=== PATIENT | female | born 2000 | race Caucasian/White ===

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

== ENCOUNTER 2020-07-14 13:03 | Emergency (ER) | payer SELFPAY ==
[2020-07-14 13:46] LABS: Absolute Lymphocytes (CBC) 1.8 K/uL (0.7-4.9); Basophils % 0.5 % (0-1.3); Hematocrit 40.5 % (36.0-45.0); Lymphocytes % 12.2 % (15.3-44.8); MPV 8.7 fL (7.6-11.3); RBC Red Blood Cell Count 4.34 M/uL (3.86-4.86)
[2020-07-14 13:52] LABS: Urine Bacteria 20-50 /HPF (<20); Urine Culture Reflex Order REFLEXED; Urine RBC <5 /HPF (NONE SEEN); Urine White Blood Cell Casts 0-5 /LPF (NONE SEEN)
[2020-07-14] MEDS ORDERED: CEFTRIAXONE/SWI 1gm 1 GM/10 ML SYR ONE (13:52)
[2020-07-14] MEDS ORDERED: NA CHLORIDE 0.9% 1,000 ML ONE (13:52)
[2020-07-14 14:01] LABS: Albumin 3.8 g/dL (3.4-5.0); Bilirubin Direct 0.1 mg/dL (0-0.2); Bilirubin Total 0.5 mg/dL (0.2-1.0); Potassium 3.6 mmol/L (3.5-5.1); Protein, Total 7.5 g/dL (6.4-8.2)
[2020-07-14 14:06] LABS: Urine Blood 2+ (NEG); Urine Glucose TRACE (NEG); Urine Protein 2+ (NEG); Urine Specific Gravity 1.025 (1.005-1.030)
--- NOTE | 2020-07-14 14:56 | EDPHYS ---
Physician Documentation [facility] Name: Jareth Guzman Age: 20 yrs Sex: Female : 2000 Arrival Date: 07/14/2020 Time: 13:06 Bed 19 Private MD: ED Physician Channing Zhang HPI: 07/14 13:47 This 20 yrs old Female presents to ER via Ambulatory with complaints of Side jr8 Pain. 13:47 The patient complains of pain in the right flank. The pain does not radiate. Onset: The jr8 symptoms/episode began/occurred acutely, 2 day(s) ago. Modifying factors: The symptoms are alleviated by nothing. the symptoms are aggravated by nothing. Associated signs and symptoms: Pertinent positives: dysuria. Severity of pain: At its worst the pain was moderate in the emergency department the pain is unchanged. The patient has not experienced similar symptoms in the past. The patient has not recently seen a physician. Historical: - Allergies: 13:17 No Known Allergies; ll1 - PMHx: 13:17 Asthma; Ovarian cyst; ll1 - PSHx: 13:17 None; ll1 - Immunization history:: Flu vaccine is not up to date. - Social history:: Smoking status: Patient reports the use of cigarette tobacco products, smokes one-half pack cigarettes per day. ROS: 13:47 Eyes: Negative for injury, pain, redness, and discharge, ENT: Negative for injury, jr8 pain, and discharge, Neck: Negative for injury, pain, and swelling, Cardiovascular: Negative for chest pain, palpitations, and edema, Respiratory: Negative for shortness of breath, cough, wheezing, and pleuritic chest pain, Abdomen/GI: Negative for abdominal pain, nausea, vomiting, diarrhea, and constipation, MS/Extremity: Negative for injury and deformity, Skin: Negative for injury, rash, and discoloration, Neuro: Negative for headache, weakness, numbness, tingling, and seizure. 13:47 Back: Positive for flank pain, on the right. 13:47 : Positive for urinary symptoms, burning with urination, Negative for vaginal bleeding, vaginal discharge, vaginal itching, menstrual abnormality. Exam: 13:47 Eyes: Pupils equal round and reactive to light, extra-ocular motions intact. Lids and jr8 lashes normal. Conjunctiva and sclera are non-icteric and not injected. Cornea within normal limits. Periorbital areas with no swelling, redness, or edema. ENT: Nares patent. No nasal discharge, no septal abnormalities noted. Tympanic membranes are normal and external auditory canals are clear. Oropharynx with no redness, swelling, or masses, exudates, or evidence of obstruction, uvula midline. Mucous membranes moist. Neck: Trachea midline, no thyromegaly or masses palpated, and no cervical lymphadenopathy. Supple, full range of motion without nuchal rigidity, or vertebral point tenderness. No Meningismus. Cardiovascular: Regular rate and rhythm with a normal S1 and S2. No gallops, murmurs, or rubs. Normal PMI, no JVD. No pulse deficits. Respiratory: Lungs have equal breath sounds bilaterally, clear to auscultation and percussion. No rales, rhonchi or wheezes noted. No increased work of breathing, no retractions or nasal flaring. Skin: Warm, dry with normal turgor. Normal color with no rashes, no lesions, and no evidence of cellulitis. MS/ Extremity: Pulses equal, no cyanosis. Neurovascular intact. Full, normal range of motion. Neuro: Awake and alert, GCS 15, oriented to person, place, time, and situation. Cranial nerves II-XII grossly intact. Motor strength 5/5 in all extremities. Sensory grossly intact. 13:47 Abdomen/GI: Inspection: abdomen appears normal, Bowel sounds: active, all quadrants, Palpation: soft, in all quadrants, mild abdominal tenderness, in the posterior aspect of right lateral abdomen and anterior aspect of right lateral abdomen, mass, is not appreciated, rebound tenderness, is not appreciated, voluntary guarding, is not appreciated, involuntary guarding, is not appreciated, no appreciated organomegaly, Indicators: McBurney's point is not tender, Lindsay's sign is negative, Rovsing's sign is negative, Liver: tenderness, is not appreciated. 13:47 Back: pain, that is mild, of the right flank, CVA tenderness, that is mild, is noted on the right. Vital Signs: 13:15 BP 108 / 90; Pulse 97; Resp 17; Temp 98.7; Pulse Ox 96% ; Pain 5/10; ll1 14:19 BP 114 / 72; Pulse 103; Resp 18; Pulse Ox 100% on R/A; em MDM: 13:19 Patient medically screened. [facility] 14:54 Data reviewed: vital signs, nurses notes, lab test result(s), and as a result, I will jr8 discharge patient. Data interpreted: Pulse oximetry: on room air is 100 %. Interpretation: normal. Counseling: I had a detailed discussion with the patient and/or guardian regarding: the historical points, exam findings, and any diagnostic results supporting the discharge/admit diagnosis, lab results, the need for outpatient follow up, a family practitioner, to return to the emergency department if symptoms worsen or persist or if there are any questions or concerns that arise at home. Response to treatment: the patient's symptoms have mildly improved after treatment. 07/14 13:19 Order name: Basic Metabolic Panel; Complete Time: 14:54 [facility] 07/14 13:19 Order name: CBC with Diff; Complete Time: 14:54 [facility] 07/14 13:19 Order name: Hepatic Function; Complete Time: 14:54 [facility] 07/14 13:19 Order name: Lipase; Complete Time: 14:54 [facility] 07/14 13:19 Order name: Urine Microscopic Only; Complete Time: 14:54 [facility] 07/14 13:53 Order name: Urine Culture EDSD 07/14 13:19 Order name: IV Saline Lock; Complete Time: 13:46 [facility] 07/14 13:19 Order name: Labs collected and sent; Complete Time: 13:46 [facility] 07/14 13:19 Order name: Urine Dipstick-Ancillary (obtain specimen); Complete Time: 13:30 [facility] 07/14 14:01 Order name: Urine Dipstick--Ancillary (enter results); Complete Time: 14:54 bd 07/14 14:01 Order name: Urine --Ancillary (enter results); Complete Time: 14:54 bd Administered Medications: 13:44 Drug: NS 0.9% 1000 ml Route: IV; Rate: 1000 ml; Site: right antecubital; em 15:05 Follow up: IV Status: Completed infusion; IV Intake: 1000ml em 13:44 Drug: Rocephin 2 grams Route: IV; Rate: calculated rate; Site: right antecubital; em 15:05 Follow up: Response: No adverse reaction; IV Status: Completed infusion; IV Intake: 20mlem Disposition: 17:06 Co-signature as Attending Physician, Channing Zhang MD I agree with the assessment and kdr plan of care. Disposition: 07/14/20 14:55 Discharged to Home. Impression: Acute tubulo-interstitial nephritis. - Condition is Stable. - Discharge Instructions: Pyelonephritis, Adult. - Prescriptions for Zofran 4 mg Oral Tablet - take 1 tablet by ORAL route every 12 hours As needed; 20 tablet. Bactrim DS 800- 160 mg Oral Tablet - take 1 tablet by ORAL route every 12 hours for 10 days; 20 tablet. Ibuprofen 800 mg Oral Tablet - take 1 tablet by ORAL route every 12 hours As needed take with food; 20 tablet. - Work release form, Medication Reconciliation Form, Thank You Letter, Antibiotic Education, Prescription Opioid Use form. - Follow up: Private Physician; When: 2 - 3 days; Reason: Recheck today's complaints, Continuance of care, Re-evaluation by your physician. - Problem is new. - Symptoms have improved. Signatures: Dispatcher [employer] EDChanning Vera MD MD [facility] Power Enciso, RN RN em Miguel Macias PA PA jr8 Karen Larry RN RN ll1 Corrections: (The following items were deleted from the chart) 15:07 14:55 07/14/2020 14:55 Discharged to Home. Impression: Acute tubulo-interstitial em nephritis. Condition is Stable. Forms are Medication Reconciliation Form, Thank You Letter, Antibiotic Education, Prescription Opioid Use. Follow up: Private Physician; When: 2 - 3 days; Reason: Recheck today's complaints, Continuance of care, Re-evaluation by your physician. Problem is new. Symptoms have improved. jr8
--- NOTE | 2020-07-14 14:56 | ER ---
Nurse's Notes [facility] Name: Jareth Guzman Age: 20 yrs Sex: Female : 2000 Arrival Date: 07/14/2020 Time: 13:06 Bed 19 Private MD: Diagnosis: Acute tubulo-interstitial nephritis Presentation: 07/14 13:15 Chief complaint: Patient states: Dysuria and right flank pain for 3 days. No fever. Azo ll1 helped a little. Coronavirus screen: Client denies travel out of the [place] in the last 14 days. At this time, the client does not indicate any symptoms associated with coronavirus-19. Ebola Screen: Patient denies travel to an Ebola-affected area in the 21 days before illness onset. Initial Sepsis Screen: Does the patient meet any 2 criteria? HR > 90 bpm. Risk Assessment: Do you want to hurt yourself or someone else? Patient reports no desire to harm self or others. Onset of symptoms was July 12, 2020. 13:15 Method Of Arrival: Ambulatory ll1 13:15 Acuity: JAVIER 3 ll1 Historical: - Allergies: 13:17 No Known Allergies; ll1 - PMHx: 13:17 Asthma; Ovarian cyst; ll1 - PSHx: 13:17 None; ll1 - Immunization history:: Flu vaccine is not up to date. - Social history:: Smoking status: Patient reports the use of cigarette tobacco products, smokes one-half pack cigarettes per day. Screenin:30 Abuse screen: Denies threats or abuse. Nutritional screening: No deficits noted. em Tuberculosis screening: No symptoms or risk factors identified. Fall Risk None identified. Assessment: 13:30 General: Appears in no apparent distress. comfortable, Behavior is calm, cooperative, em appropriate for age, Denies fever. Pain: Complains of pain in right flank Pain currently is 5 out of 10 on a pain scale. Pain began 2-3 days ago. Neuro: Level of Consciousness is awake, alert, obeys commands, Oriented to person, place, time, situation, Appropriate for age. Cardiovascular: Capillary refill < 3 seconds Patient's skin is warm and dry. Respiratory: Airway is patent Respiratory effort is even, unlabored, Respiratory pattern is regular, symmetrical. GI: Abdomen is flat, Patient currently denies nausea, vomiting. : Urine is cloudy, Reports burning with urination. Derm: Skin is intact, is healthy with good turgor, Skin is pink, warm \T\ dry. Musculoskeletal: Capillary refill < 3 seconds, Range of motion: intact in all extremities. 14:15 Reassessment: Patient appears in no apparent distress at this time. Patient and/or em family updated on plan of care and expected duration. Pain level reassessed. Patient is alert, oriented x 3, equal unlabored respirations, skin warm/dry/pink. Vital Signs: 13:15 BP 108 / 90; Pulse 97; Resp 17; Temp 98.7; Pulse Ox 96% ; Pain 5/10; ll1 14:19 BP 114 / 72; Pulse 103; Resp 18; Pulse Ox 100% on R/A; em ED Course: 13:06 Patient arrived in ED. ds1 13:16 Triage completed. ll1 13:17 Arm band placed on Patient placed in an exam room, on a stretcher. ll1 13:18 Power Enciso, JOSTIN is Primary Nurse. em 13:18 Miguel Macias PA is PHCP. jr8 13:18 Channing Zhang MD is Attending Physician. jr8 13:25 Urine collected: clean catch specimen, cloudy. em 13:30 Patient has correct armband on for positive identification. Placed in gown. Bed in low em position. Call light in reach. Side rails up X2. Pulse ox on. NIBP on. 13:38 Initial lab(s) drawn, by me, sent to lab. Inserted saline lock: 20 gauge in right em antecubital area, using aseptic technique. Blood collected. 15:06 No provider procedures requiring assistance completed. IV discontinued, intact, em bleeding controlled, No redness/swelling at site. Pressure dressing applied. Administered Medications: 13:44 Drug: NS 0.9% 1000 ml Route: IV; Rate: 1000 ml; Site: right antecubital; em 15:05 Follow up: IV Status: Completed infusion; IV Intake: 1000ml em 13:44 Drug: Rocephin 2 grams Route: IV; Rate: calculated rate; Site: right antecubital; em 15:05 Follow up: Response: No adverse reaction; IV Status: Completed infusion; IV Intake: 20mlem Intake: 15:05 IV: 1000ml; Total: 1000ml. em 15:05 IV: 20ml; Total: 1020ml. em Outcome: 14:55 Discharge ordered by MD. duong 15:06 Discharged to home ambulatory. em 15:06 Condition: good 15:06 Discharge instructions given to patient, Instructed on discharge instructions, follow up and referral plans. medication usage, Demonstrated understanding of instructions, follow-up care, medications, Prescriptions given X 3. 15:07 Patient left the ED. em Signatures: oPwer Enciso, RN RN em Roya Plummer ds1 Miguel Macias PA PA jr8 Lewis, Lynsay, RN RN ll1
[2020-07-14 15:40] VITALS: TEMP 98.7
[2020-07-14 15:41] VITALS: BP 114/72; O2SAT 100
== END 2020-07-14 15:07 | disposition home or self-care (01) ==
LOC: ER 13:03
DX: N10 Acute pyelonephritis (principal); F17.210 Nicotine dependence, cigarettes, uncomplicated
CPT/HCPCS: 36415; 80048; 80076; 81003; 81015; 81025; 83690; 85025; 87086; 87088; 96365; 99284; J0696; J7030

== ENCOUNTER 2021-03-29 04:01 | Emergency (ER) | payer SELFPAY ==
[2021-03-29 05:12] LABS: Urine Blood Negative (Negative); Urine Glucose Negative (Negative); Urine Protein Negative (Negative); Urine Specific Gravity >=1.030 (1.005-1.030)
[2021-03-29] MEDS ORDERED: IBUPROFEN 400 MG TAB ONE (05:44)
[2021-03-29] MEDS ORDERED: CIPROFLOXACIN HCL 500 MG TAB ONE (05:44)
--- NOTE | 2021-03-29 06:03 | ER ---
Nurse's Notes [facility] Name: Jareth Guzman Age: 20 yrs Sex: Female : 2000 Arrival Date: 03/29/2021 Time: 04:08 Bed 13 Private MD: Diagnosis: Low back pain;Dysuria Presentation: 03/29 04:23 Chief complaint: Patient states: low back pain that started 2 weeks ago that got em better, but few days ago pain became worse, also had some urine frequency but no burning, denies N/V/D or fever. Coronavirus screen: Client denies travel out of the [place] in the last 14 days. Ebola Screen: Patient negative for fever greater than or equal to 101.5 degrees Fahrenheit, and additional compatible Ebola Virus Disease symptoms Patient denies exposure to infectious person. Patient denies travel to an Ebola-affected area in the 21 days before illness onset. No symptoms or risks identified at this time. Initial Sepsis Screen: Does the patient meet any 2 criteria? HR > 90 bpm. No. Patient's initial sepsis screen is negative. Does the patient have a suspected source of infection? Yes: Dysuria/Frequency/Urgency/UTI. Risk Assessment: Do you want to hurt yourself or someone else? Patient reports no desire to harm self or others. Onset of symptoms was March 29, 2021. 04:23 Method Of Arrival: Ambulatory em 04:23 Acuity: JAVIER 4 em Triage Assessment: 04:58 General: Behavior is calm, cooperative, appropriate for age. 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 - Social history:: Smoking status: Patient reports the use of cigarette tobacco products, smokes one-half pack cigarettes per day. - Family history:: not pertinent. Screenin:48 Abuse screen: Denies threats or abuse. Denies injuries from another. Nutritional jm8 screening: No deficits noted. Tuberculosis screening: No symptoms or risk factors identified. Fall Risk None identified. Assessment: 04:56 General: Appears in no apparent distress. comfortable. Pain: Complains of pain in back. jm8 Pain: Pain currently is 5 out of 10 on a pain scale. Quality of pain is described as sharp, tender, Pain began 2 weeks Aggravated by increased activity. Neuro: No deficits noted. Level of Consciousness is awake, alert, obeys commands, Oriented to person, place, time. Cardiovascular: No deficits noted. Respiratory: No deficits noted. Airway is patent Trachea midline Respiratory effort is even, unlabored, Respiratory pattern is regular, symmetrical. GI: No deficits noted. No signs and/or symptoms were reported involving the gastrointestinal system. : No deficits noted. No signs and/or symptoms were reported regarding the genitourinary system. : No deficits noted. No signs and/or symptoms were reported regarding the genitourinary system. Reports urinary frequency. EENT: No deficits noted. No signs and/or symptoms were reported regarding the EENT system. Derm: No deficits noted. No signs and/or symptoms reported regarding the dermatologic system. Musculoskeletal: Reports pain in back. Vital Signs: 04:23 BP 116 / 76; Pulse 99; Resp 18; Temp 98.7; Pulse Ox 100% on R/A; Weight 51.26 kg (R); em Height 5 ft. 0 in. (152.40 cm); Pain 3/10; 06:16 BP 109 / 72; Pulse 99; Resp 16; Pulse Ox 99% on R/A; jm8 04:23 Body Mass Index 22.07 (51.26 kg, 152.40 cm) em ED Course: 04:08 Patient arrived in ED. am4 04:15 Pavel Red MD is Attending Physician. lonnie 04:24 Triage completed. em 04:25 Arm band placed on. em 04:48 Patient has correct armband on for positive identification. Bed in low position. Call jm8 light in reach. Side rails up X2. Adult w/ patient. 04:54 Lumbar Spine (3 Views) XRAY In Process Unspecified. EDMS 06:02 Rj Siddiqui DO is Referral Physician. lonnie 06:17 No provider procedures requiring assistance completed. Patient did not have IV access jm8 during this emergency room visit. Administered Medications: 05:26 Drug: Cipro (ciprofloxacin) 500 mg Route: PO; jm8 06:16 Follow up: Response: No adverse reaction [facility] 05:26 Drug: Motrin (ibuprofen) 400 mg Route: PO; jm8 06:15 Follow up: Response: No adverse reaction jm8 Outcome: 06:02 Discharge ordered by . lonnie 06:16 Discharged to home ambulatory. jm8 06:16 Condition: good 06:16 Discharge instructions given to patient, Instructed on discharge instructions, follow up and referral plans. medication usage, Demonstrated understanding of instructions, follow-up care, medications, Prescriptions given X 2. 06:17 Patient left the ED. jm8 Signatures: Dispatcher [employer] Pavel Santoyo MD MD cha Munoz, Edgar, RN RN Marta Robledo Joseph, RN RN jm8
--- NOTE | 2021-03-29 06:03 | EDPHYS ---
Physician Documentation [facility] Name: Jareth Guzman Age: 20 yrs Sex: Female : 2000 Arrival Date: 03/29/2021 Time: 04:08 Bed 13 Private MD: ED Physician Pavel Red HPI: 03/29 05:05 This 20 yrs old Female presents to ER via Ambulatory with complaints of Low lonnie Back Pain. 05:05 The patient presents with pain that is chronic, with no known mechanism of injury. The lonnie symptoms are located in the low back. The pain does not radiate. The problem was sustained from unknown cause. Onset: The symptoms/episode began/occurred 2 day(s) ago. Modifying factors: The patient symptoms are alleviated by nothing, the patient symptoms are aggravated by movement. Associated signs and symptoms: The patient has no apparent associated signs or symptoms. Severity of symptoms: At their worst the symptoms were mild, in the emergency department the symptoms are unchanged. The patient has not experienced similar symptoms in the past. MED ADMIN: 04:25 LMP 02/26/2021 em Historical: - Allergies: 04:25 No Known Allergies; em - PMHx: 04:25 Asthma; Ovarian cyst; em - PSHx: 04:25 None; em - Immunization history:: Adult Immunizations up to date. - Social history:: Smoking status: Patient reports the use of cigarette tobacco products, smokes one-half pack cigarettes per day. - Family history:: not pertinent. ROS: 05:05 Constitutional: Negative for fever, chills, and weight loss, Eyes: Negative for injury, lonnie pain, redness, and discharge, ENT: Negative for injury, pain, and discharge, Neck: Negative for injury, pain, and swelling, Cardiovascular: Negative for chest pain, palpitations, and edema, Respiratory: Negative for shortness of breath, cough, wheezing, and pleuritic chest pain, : Negative for injury, bleeding, discharge, and swelling, MS/Extremity: Negative for injury and deformity, Skin: Negative for injury, rash, and discoloration, Neuro: Negative for headache, weakness, numbness, tingling, and seizure, Psych: Negative for depression, anxiety, suicide ideation, homicidal ideation, and hallucinations, Allergy/Immunology: Negative for hives, rash, and allergies, Endocrine: Negative for neck swelling, polydipsia, polyuria, polyphagia, and marked weight changes, Hematologic/Lymphatic: Negative for swollen nodes, abnormal bleeding, and unusual bruising. 05:05 Abdomen/GI: Positive for abdominal pain, of the suprapubic area. 05:05 Back: Positive for decreased range of motion, pain at rest. Exam: 05:05 Constitutional: This is a well developed, well nourished patient who is awake, alert, lonnie and in no acute distress. Head/Face: Normocephalic, atraumatic. Eyes: Pupils equal round and reactive to light, extra-ocular motions intact. Lids and lashes normal. Conjunctiva and sclera are non-icteric and not injected. Cornea within normal limits. Periorbital areas with no swelling, redness, or edema. ENT: Nares patent. No nasal discharge, no septal abnormalities noted. Tympanic membranes are normal and external auditory canals are clear. Oropharynx with no redness, swelling, or masses, exudates, or evidence of obstruction, uvula midline. Mucous membranes moist. Neck: Trachea midline, no thyromegaly or masses palpated, and no cervical lymphadenopathy. Supple, full range of motion without nuchal rigidity, or vertebral point tenderness. No Meningismus. Chest/axilla: Normal chest wall appearance and motion. Nontender with no deformity. No lesions are appreciated. Cardiovascular: Regular rate and rhythm with a normal S1 and S2. No gallops, murmurs, or rubs. Normal PMI, no JVD. No pulse deficits. Respiratory: Lungs have equal breath sounds bilaterally, clear to auscultation and percussion. No rales, rhonchi or wheezes noted. No increased work of breathing, no retractions or nasal flaring. Abdomen/GI: Soft, non-tender, with normal bowel sounds. No distension or tympany. No guarding or rebound. No evidence of tenderness throughout. Skin: Warm, dry with normal turgor. Normal color with no rashes, no lesions, and no evidence of cellulitis. MS/ Extremity: Pulses equal, no cyanosis. Neurovascular intact. Full, normal range of motion. Neuro: Awake and alert, GCS 15, oriented to person, place, time, and situation. Cranial nerves II-XII grossly intact. Motor strength 5/5 in all extremities. Sensory grossly intact. Cerebellar exam normal. Normal gait. 05:05 Back: pain, that is mild, ROM is painful, with all movement, normal spinal alignment noted, CVA tenderness, is absent, muscle spasm, is not present, Straight leg raises: right lower extremity does not illicit pain, left lower extremity does not illicit pain, of both lower extremities does not illicit pain. Vital Signs: 04:23 BP 116 / 76; Pulse 99; Resp 18; Temp 98.7; Pulse Ox 100% on R/A; Weight 51.26 kg (R); em Height 5 ft. 0 in. (152.40 cm); Pain 3; 06:16 BP 109 / 72; Pulse 99; Resp 16; Pulse Ox 99% on R/A; [facility] 04:23 Body Mass Index 22.07 (51.26 kg, 152.40 cm) em MDM: 04:43 Patient medically screened. [facility] 05:08 Differential diagnosis: arthritis, strain, sciatica, contusion, Herniated disc UTI. [facility] Data reviewed: vital signs, nurses notes, diagnostic data from outside facility, lab test result(s), urinalysis, radiologic studies, plain films. 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 Test interpretation: by ED physician or midlevel provider: plain radiologic studies. Counseling: I had a detailed discussion with the patient and/or guardian regarding: the historical points, exam findings, and any diagnostic results supporting the discharge/admit diagnosis, lab results, radiology results. 03/29 05:12 Order name: Urine Dipstick-Ancillary [facility] 03/29 04:17 Order name: Lumbar Spine (3 Views) XRAY [facility] 03/29 04:17 Order name: Urine Dipstick-Ancillary (obtain specimen); Complete Time: 04:24 [facility] 03/29 04:17 Order name: Urine Test (obtain specimen); Complete Time: 04:24 [facility] Administered Medications: 05:26 Drug: Cipro (ciprofloxacin) 500 mg Route: PO; jm8 06:16 Follow up: Response: No adverse reaction [facility] 05:26 Drug: Motrin (ibuprofen) 400 mg Route: PO; jm8 06:15 Follow up: Response: No adverse reaction jm8 Disposition: 03/29/21 06:02 Discharged to Home. Impression: Low back pain, Dysuria. - Condition is Stable. - Discharge Instructions: Back Pain, Adult, Dysuria, Musculoskeletal Pain, Urinary Tract Infection, Adult, Urinary Tract Infection, Adult, [id number], Back Pain, Adult, [id number]. - Prescriptions for Cipro 250 mg Oral Tablet - take 1 tablet by ORAL route every 12 hours; 10 tablet. Motrin IB 200 mg Oral Tablet - take 2 tablet by ORAL route every 6 hours As needed as needed with food; 30 tablet. - Medication Reconciliation Form, Thank You Letter, Antibiotic Education, Prescription Opioid Use form. - Follow up: Private Physician; When: 2 - 3 days; Reason: Recheck today's complaints, Continuance of care, Re-evaluation by your physician. Follow up: Rj Siddiqui; When: 2 - 3 days; Reason: Recheck today's complaints, Continuance of care, Re-evaluation by your physician. - Problem is new. - Symptoms have improved. Signatures: Dispatcher [employer] Pavel Santoyo MD MD cha Munoz, Edgar, Augie Harmon RN, RN RN jm8 Corrections: (The following items were deleted from the chart) 06:17 06:02 03/29/2021 06:02 Discharged to Home. Impression: Low back pain; Dysuria. jm8 Condition is Stable. Discharge Instructions: Back Pain, Adult, Dysuria, Musculoskeletal Pain, Urinary Tract Infection, Adult, Urinary Tract Infection, Adult, [id number], Back Pain, Adult, [id number]-[id number]. Prescriptions for Cipro 250 mg Oral Tablet - take 1 tablet by ORAL route every 12 hours; 10 tablet, Motrin IB 200 mg Oral Tablet - take 2 tablet by ORAL route every 6 hours As needed as needed with food; 30 tablet. and Forms are Medication Reconciliation Form, Thank You Letter, Antibiotic Education, Prescription Opioid Use. Follow up: Private Physician; When: 2 - 3 days; Reason: Recheck today's complaints, Continuance of care, Re-evaluation by your physician. Follow up: Rj Siddiqui; When: 2 - 3 days; Reason: Recheck today's complaints, Continuance of care, Re-evaluation by your physician. Problem is new. Symptoms have improved. lonnie
[2021-03-29 06:23] VITALS: TEMP 98.7
[2021-03-29 06:25] VITALS: BP 109/72; O2SAT 99
--- NOTE | 2021-03-29 09:18 | RAD REPORT ---
EXAM DESCRIPTION: RAD - Lumbar Spine 3 Views - 03/29/2021 4:54 am CLINICAL HISTORY: PAIN Radiculopathy COMPARISON: No comparisons FINDINGS: Vertebral body heights appear maintained. No compression fracture noted. Disc spaces are m aintained. No spondylolysis or spondylolisthesis. IMPRESSION: Negative study.
== END 2021-03-29 06:17 | disposition home or self-care (01) ==
LOC: ER 04:01
DX: R30.0 Dysuria (principal); F17.210 Nicotine dependence, cigarettes, uncomplicated
CPT/HCPCS: 72100; 81003; 99283

== ENCOUNTER 2023-05-21 13:17 | Emergency (ER) | payer SELFPAY ==
[2023-05-21] MEDS ORDERED: ACETAMINOPHEN 500 MG TAB ONE (14:06)
[2023-05-21] MEDS ORDERED: KETOROLAC 30 MG/ML INJ ONE (14:06)
[2023-05-21] MEDS ORDERED: NA CHLORIDE 0.9% 1,000 ML ONE (14:06)
[2023-05-21 14:33] LABS: SARS-CoV-2 Antigen Rapid Res Negative (Negative)
--- NOTE | 2023-05-21 15:04 | EDPHYS ---
Physician Documentation [facility] Name: Jareth Guzman Age: 23 yrs Sex: Female : 2000 Arrival Date: 05/21/2023 Time: 13:17 Bed 15 Private MD: ED Physician Jassi Thorne HPI: 05/21 13:37 This 23 yrs old Female presents to ER via Unassigned with complaints of Fever, Sore sb4 Throat, Headache. 13:37 The patient reports fever, that was measured at 103.7 degrees Fahrenheit, with a sb4 pattern that is cyclical, with an emergency department temperature of 102.8 degrees Fahrenheit. Onset: The symptoms/episode began/occurred 5 day(s) ago. Modifying factors: Recent medications: acetaminophen, ibuprofen, The patient has had contact with sick mother, Denies recent travel. Interventions used to treat fever include home remedies. Associated signs and symptoms: Pertinent positives: chills, cough, earache, headache, myalgias, nausea, night sweats, sore throat. The patient has not recently seen a physician. 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 - Social history:: Smoking status: Reported history of juuling and/or vaping. ROS: 13:37 Eyes: Negative for injury, pain, redness, and discharge. sb4 13:37 Constitutional: Positive for body aches, chills, fever, malaise, Negative for fatigue, weight loss. 13:37 ENT: Positive for ear pain, sore throat. 13:37 Respiratory: Positive for cough. 13:37 Neuro: Positive for headache. 13:37 All other systems are negative. Exam: 13:37 Constitutional: This is a well developed, well nourished patient who is awake, alert, sb4 and in no acute distress. Head/Face: Normocephalic, atraumatic. Eyes: Extra-ocular motions intact. Periorbital areas with no swelling, redness, or edema. ENT: Mucous membranes moist. Cardiovascular: Regular rate and rhythm with a normal S1 and S2. Respiratory: Lungs have equal breath sounds bilaterally, clear to auscultation and percussion. No rales, rhonchi or wheezes noted. No increased work of breathing, no retractions or nasal flaring. Abdomen/GI: Soft, non-tender, no distension. Back: No spinal tenderness. No costovertebral tenderness. Full range of motion. Skin: Warm, dry with normal turgor. Normal color with no rashes, no lesions, and no evidence of cellulitis. MS/ Extremity: Pulses equal, no cyanosis. Neurovascular intact. Full, normal range of motion. Vital Signs: 13:38 BP 104 / 67; Pulse 120; Resp 20; Temp 102.8(O); Pulse Ox 100% on R/A; Weight 58.97 kg; me1 Height 5 ft. 0 in. ; Pain 4/10; 14:35 BP 113 / 61; Pulse 118; Resp 18; Pulse Ox 100% ; nj1 15:19 BP 110 / 58; Pulse 98; Resp 18; Temp 99.7(O); Pulse Ox 99% on R/A; nj1 15:25 Pain 4/10; nj1 13:38 Body Mass Index 25.39 (58.97 kg, 152.4 cm) me1 13:38 Pain Scale: Adult me1 15:25 Pain Scale: Adult nj1 MDM: 13:19 Patient medically screened. sb4 13:37 Differential diagnosis: viral Infection, bacterial infection, URI, bronchitis, sb4 pneumonia pharyngitis, strep throat, covid, flu. 15:00 Data reviewed: vital signs, nurses notes, lab test result(s), Flu: positive I have sb4 discussed the patient's presentation/case with the attending Emergency Department Physician; and as a result, I will discharge patient, administer IV fluids, NS bolus. I considered the following discharge prescriptions or medication management in the emergency department Antibiotics: At this time antibiotics are not recommended, Antivirals: At this time, antivirals are not recommended. Test considered but Not performed: Labs: Code sepsis was called on patient as her temperature was 102.8 Fahrenheit and pulse was 118 however her source is viral in nature, influenza B, so there is no need for a full septic work-up. Her heart rate and temperature improved with IV fluids, Tylenol, and Toradol. Historians other than the Patient: Parent: Mother. Counseling: I had a detailed discussion with the patient and/or guardian regarding: the historical points, exam findings, and any diagnostic results supporting the discharge/admit diagnosis, lab results, to return to the emergency department if symptoms worsen or persist or if there are any questions or concerns that arise at home. Medication response: Toradol markedly relieved the patient's pain. Special discussion: I discussed with the patient/guardian that the patient's current presentation does not indicate dosing of antibiotics. They should follow-up with their primary care provider and return if the symptoms persist or progress. 05/21 13:36 Order name: SARS RAPID; Complete Time: 14:36 sb4 05/21 13:36 Order name: Flu; Complete Time: 14:36 sb4 05/21 13:36 Order name: Strep sb4 05/21 14:39 Order name: Throat Culture EDMS 05/21 13:37 Order name: IV Start; Complete Time: 14:12 sb4 05/21 15:07 Order name: Vital Signs; Complete Time: 15:19 sb4 Administered Medications: 14:00 Drug: Acetaminophen PO 1000 mg Route: PO; nj1 15:26 Follow up: Response: No adverse reaction; Temperature is decreased nj1 14:01 Drug: NS 0.9% IV 1000 ml Route: IV; Rate: 1 bolus; Site: right antecubital; nj1 15:25 Follow up: Response: No adverse reaction; IV Status: Completed infusion; IV Intake: nj1 1000ml 14:02 Drug: Ketorolac IVP 15 mg Route: IVP; Site: right antecubital; nj1 15:25 Follow up: Pain 4/10 Adult; Response: No adverse reaction; Pain is decreased nj1 Disposition: 16:13 Co-signature as Attending Physician, Jassi Thorne MD I reviewed the patient's care rn provided by the Advanced Practice Provider and agree with the diagnosis and treatment plan. Disposition Summary: 05/21/23 15:03 Discharge Ordered Location: Home sb4 Problem: an ongoing problem sb4 Symptoms: have improved sb4 Condition: Stable sb4 Diagnosis - Influenza due to other identified influenza virus with other respiratory sb4 manifestations Followup: sb4 - With: Emergency Department - When: - Reason: Trouble breathing, Worsening of condition Discharge Instructions: - Discharge Summary Sheet sb4 - Influenza, Adult, [id number]-[id number] sb4 - Fever, Adult, [id number] sb4 Forms: - Medication Reconciliation Form sb4 - Thank You Letter sb4 - Antibiotic Education sb4 - Prescription Opioid Use sb4 - Patient Portal Instructions sb4 Prescriptions: - albuterol sulfate 90 mcg/actuation Inhalation HFA Aerosol Inhaler - inhale 1 puff by INHALATION route 4 times per day as needed for shortness of sb4 breath or wheezing; 1 Applicator; Refills: 0, Product Selection Permitted - Medrol (Kirill) 4 mg Oral Tablets, Dose Pack - take 1 tablet by ORAL route as directed - follow package instructions; 1 sb4 packet; Refills: 0, Product Selection Permitted Signatures: Dispatcher [employer] EDMS Jassi Thorne MD MD rn Brown, Sophia, PA-C PA-C sb4 Paty Borrego RN RN nj1 Lavonne Sanford RN RN me1
--- NOTE | 2023-05-21 15:04 | ER ---
Nurse's Notes [facility] Name: Jareth Guzman Age: 23 yrs Sex: Female : 2000 Arrival Date: 05/21/2023 Time: 13:17 Bed 15 Private MD: Diagnosis: Influenza due to other identified influenza virus with other respiratory manifestations Presentation: 05/21 13:38 Chief complaint: Patient states: fever, sore throat, headache, body aches. Coronavirus me1 screen: Vaccine status: Patient reports being unvaccinated. chills, fatigue, fever, muscle pain, shaking with chills, sore throat, Client presents with at least one sign or symptom that may indicate coronavirus-19. Ebola Screen: No symptoms or risks identified at this time. Initial Sepsis Screen: Does the patient meet any 2 criteria? Temp <36.0*C (96.8*F)) or > 38.3*C (100.9*F). HR > 90 bpm. Yes Does the patient have a suspected source of infection? Yes: If YES to both, name of provider notified: Savannah Woo PA-C. Risk Assessment: Do you want to hurt yourself or someone else? Patient reports no desire to harm self or others. Onset of symptoms is unknown. 13:38 Method Of Arrival: [facility] 13:38 Acuity: JAVIER 3 me1 Triage Assessment: 13:41 General: Appears uncomfortable, unkempt, well developed, Behavior is calm, cooperative, me1 appropriate for age. Pain: Complains of pain in generalized body aches. Pain currently is 4 out of 10 on a pain scale. Quality of pain is described as aching. 13:41 Neuro: Level of Consciousness is awake, alert, obeys commands, Oriented to person, me1 place, time, situation, Appropriate for age. Cardiovascular: Capillary refill < 3 seconds Patient's skin is warm and dry. tachycardia. Respiratory: Respiratory effort is even, unlabored, Respiratory pattern is regular, symmetrical. 13:41 GI: Patient currently denies diarrhea, nausea, vomiting. 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 - Social history:: Smoking status: Reported history of juuling and/or vaping. Screenin:13 [facility] ED Fall Risk Assessment (Adult) History of falling in the last 3 months, [facility] including since admission Score/Fall Risk Level 0 - 2 = Low Risk Oriented to surroundings, Maintained a safe environment, Hourly rounding (assess needs \T\ fall precautionary measures) done. Abuse screen: Denies threats or abuse. Denies injuries from another. Nutritional screening: No deficits noted. Tuberculosis screening: No symptoms or risk factors identified. Assessment: 14:00 Reassessment: See triage assessment. nj1 Vital Signs: 13:38 BP 104 / 67; Pulse 120; Resp 20; Temp 102.8(O); Pulse Ox 100% on R/A; Weight 58.97 kg; me1 Height 5 ft. 0 in. ; Pain 4/10; 14:35 BP 113 / 61; Pulse 118; Resp 18; Pulse Ox 100% ; nj1 15:19 BP 110 / 58; Pulse 98; Resp 18; Temp 99.7(O); Pulse Ox 99% on R/A; nj1 15:25 Pain 4/10; nj1 13:38 Body Mass Index 25.39 (58.97 kg, 152.4 cm) me1 13:38 Pain Scale: Adult me1 15:25 Pain Scale: Adult [facility] ED Course: 13:19 Patient arrived in ED. mr 13:19 Savannah Woo PA-C is PHCP. sb4 13:19 Jassi Thorne MD is Attending Physician. sb4 13:41 Triage completed. me1 13:43 Paty Borrego, JOSTIN is Primary Nurse. nj1 14:00 Inserted saline lock: 22 gauge in right antecubital area, using aseptic technique. nj1 14:00 Provided Education on: fall precautions, call light. nj1 14:00 Patient has correct armband on for positive identification. Bed in low position. Call nj1 light in reach. Adult w/ patient. 14:14 Arm band placed on right wrist. nj1 15:26 No provider procedures requiring assistance completed. IV discontinued, intact, nj1 bleeding controlled. Administered Medications: 14:00 Drug: Acetaminophen PO 1000 mg Route: PO; nj1 15:26 Follow up: Response: No adverse reaction; Temperature is decreased nj1 14:01 Drug: NS 0.9% IV 1000 ml Route: IV; Rate: 1 bolus; Site: right antecubital; nj1 15:25 Follow up: Response: No adverse reaction; IV Status: Completed infusion; IV Intake: nj1 1000ml 14:02 Drug: Ketorolac IVP 15 mg Route: IVP; Site: right antecubital; nj1 15:25 Follow up: Pain 4/10 Adult; Response: No adverse reaction; Pain is decreased nj1 Medication: 15:26 VIS not applicable for this client. nj1 Intake: 15:25 IV: 1000ml; Total: 1000ml. nj1 Outcome: 15:03 Discharge ordered by . sb4 15: Discharged to home ambulatory, with friend. nj1 15:26 Condition: stable 15:26 Discharge instructions given to patient, Instructed on discharge instructions, follow up and referral plans. medication usage, Demonstrated understanding of instructions, follow-up care, medications, Prescriptions given X 2. 15:26 Patient left the ED. nj1 Signatures: Sherrie Méndez Sophia, PA-C PA-C sb4 Paty Borrego, RN RN nj1 Lavonne Sanford, JOSTNI RN me1 Corrections: (The following items were deleted from the chart) 15:22 15:19 BP 110 / 58; Pulse 98bpm; Resp 18bpm; Pulse Ox 99% RA; nj1 nj1
[2023-05-21 15:51] VITALS: BP 110/58; TEMP 99.7; O2SAT 99
== END 2023-05-21 15:26 | disposition home or self-care (01) ==
LOC: ER 13:17
DX: J10.1 Influenza due to other identified influenza virus with other respiratory manifestations (principal); Z20.822 Contact with and (suspected) exposure to COVID-19
CPT/HCPCS: 36415; 87070; 87081; 87804; 87811; J7030